=== PATIENT | male | born 1990 | race Caucasian/White ===

== ENCOUNTER 2016-04-18 14:09 | Inpatient (IN) | payer OTHER ==
[~2016-04-18] VITALS: Ht 172.7 cm; Wt 70.5 kg
[~2016-04-18 14:09] MED LIST: CYCLOBENZAPRINE10 MG PO; ROXICODONE15 MG PO
[2016-04-18 15:33] LABS: BASO # 0.1 10*3/uL (0.0-0.1); BASO % 0.7 % (0.0-1.0); EOS # 0.1 10*3/uL (0.0-0.4); EOS % 1.2 % (1.0-4.0); HEMATOCRIT 42.2 % (42.0-52.0); HEMOGLOBIN 14.4 g/dl (14.0-18.0); LYMPH # 2.5 10*3/uL (1.3-4.4); LYMPH % 30.1 % (27.0-41.0); MEAN CELL VOLUME 88.8 fl (80.0-94.0); MEAN CORPUSCULAR HGB 30.3 pg (27.0-31.0); MEAN CORPUSCULAR HGB CONC 34.1 g/dl (33.0-37.0); MEAN PLATELET VOLUME 9.9 fl (9.6-12.3); MONO # 0.8 10*3/uL (0.1-1.0); MONO % 9.8 % (3.0-9.0); NEUT # 4.8 10*3/uL (2.3-7.9); PLATELET COUNT AUTOMATED 213 10*3/uL (130-400); RED BLOOD COUNT 4.75 10*6/uL (4.50-5.90); RED CELL DISTRI WIDTH 12.8 % (0-14.5); WHITE BLOOD COUNT 8.3 10*3/uL (4.8-10.8)
[2016-04-18 15:41] LABS: PROTHROMBIN TIME 10.5 SECONDS (9.0-12.4)
[2016-04-18 15:52] LABS: ALBUMIN 3.6 gm/dl (3.1-4.5); ALKALINE PHOSPHATASE 52 U/L (45-117); BILIRUBIN, TOTAL 0.2 mg/dl (0.2-1.0); BUN 15 mg/dl (7-24); CARBON DIOXIDE 29 mmol/L (21-32); CHLORIDE 108 mmol/L (98-107); EST GLOM FILT AFRICAN AMERICAN > 60 ml/min; GLUCOSE 87 mg/dL (65-99); POTASSIUM 3.9 mmol/L (3.5-5.1); SGOT/AST 9 IU/L (3-35); SGPT/ALT 22 U/L (12-78); SODIUM 144 mmol/L (136-145); TOTAL PROTEIN 6.3 gm/dL (6.4-8.2)
[2016-04-18 15:57] LABS: BILIRUBIN NEGATIVE (NEGATIVE); BLOOD NEGATIVE (NEGATIVE); CLARITY SL CLOUDY (CLEAR); COLOR YELLOW (YELLOW); GLUCOSE NEGATIVE (NEGATIVE); KETONE NEGATIVE (NEGATIVE); LEUKO ESTERASE NEGATIVE (NEGATIVE); NITRITE NEGATIVE (NEGATIVE); PH 6.5 (5.0-9.0); PROTEIN NEGATIVE (NEGATIVE); SPECIFIC GRAVITY 1.025 (1.005-1.030); UROBILINOGEN 0.2 E.U./dl (0.2-1.0)
[2016-04-18 16:00] VITALS: BP 107/72
[2016-04-18 16:05] LABS: MUCOUS TRACE; URINE REFLEX COMMENT NO (NO); WBC 0-2 wbc/hpf (0-5)
[2016-04-18 16:06] LABS: URINE AMPHETAMINES < 1000 (1000ng/ml); URINE BARBITURATES < 200 (200ng/ml); URINE COCAINE > 300 (300ng/ml)
[2016-04-18 20:00] VITALS: BP 100/55
[2016-04-19] VITALS: BP 98/60
[2016-04-19 04:00] VITALS: BP 104/53
[2016-04-19 07:40] VITALS: BP 104/70
[2016-04-19 12:00] VITALS: BP 100/68
[2016-04-19 20:00] VITALS: BP 115/56
[2016-04-20] VITALS: BP 103/53
[2016-04-20 08:00] VITALS: BP 106/66
[2016-04-20 16:00] VITALS: BP 107/60
[2016-04-20 20:00] VITALS: BP 111/54
[2016-04-21] VITALS: BP 104/54
[2016-04-21 06:08] LABS: BASO % 0.3 % (0.0-1.0); EOS # 0.3 10*3/uL (0.0-0.4); EOS % 2.8 % (1.0-4.0); HEMATOCRIT 40.8 % (42.0-52.0); HEMOGLOBIN 13.4 g/dl (14.0-18.0); LYMPH # 2.2 10*3/uL (1.3-4.4); LYMPH % 23.1 % (27.0-41.0); MEAN CELL VOLUME 91.1 fl (80.0-94.0); MEAN CORPUSCULAR HGB 29.9 pg (27.0-31.0); MEAN CORPUSCULAR HGB CONC 32.8 g/dl (33.0-37.0); MEAN PLATELET VOLUME 10.1 fl (9.6-12.3); MONO # 1.1 10*3/uL (0.1-1.0); MONO % 12.3 % (3.0-9.0); NEUT # 5.7 10*3/uL (2.3-7.9); NEUT % 61.3 % (47.0-73.0); PLATELET COUNT AUTOMATED 210 10*3/uL (130-400); RED BLOOD COUNT 4.48 10*6/uL (4.50-5.90); RED CELL DISTRI WIDTH 13.1 % (0-14.5); WHITE BLOOD COUNT 9.3 10*3/uL (4.8-10.8)
[2016-04-21 06:29] LABS: EST GLOM FILT AFRICAN AMERICAN > 60 ml/min
[2016-04-21 08:00] VITALS: BP 116/60
[2016-04-21] MEDS ORDERED: ATARAX,VISTARIL50 MG PO (13:48)
[2016-04-21] MEDS ORDERED: CARBIDOPA/LEVOD1 TA1 PO (13:48)
[2016-04-21] MEDS ORDERED: ZOFRAN4 MG PO (13:48)
[2016-04-21] MEDS ORDERED: NATURE'S BLEND F1 MG PO (13:50)
[2016-04-21] MEDS ORDERED: VITAMIN B-11 TAB PO (13:50)
[2016-04-21] MEDS ORDERED: THERA TABS1 TAB PO (13:50)
== END 2016-04-21 14:07 | disposition home or self-care (01) | DRG 897 ==
LOC: 4E 14:09
PROVIDERS: Hospitalist; Internal Medicine
DX: F11.23 Opioid dependence with withdrawal (principal); F10.10 Alcohol abuse, uncomplicated; F14.10 Cocaine abuse, uncomplicated; Y90.9 Presence of alcohol in blood, level not specified; F17.210 Nicotine dependence, cigarettes, uncomplicated; N34.2 Other urethritis; F41.9 Anxiety disorder, unspecified; G89.29 Other chronic pain; M54.5 Low back pain; Z71.6 Tobacco abuse counseling; Z98.890 Other specified postprocedural states; Z82.49 Family history of ischemic heart disease and other diseases of the circulatory system

== ENCOUNTER 2016-12-14 11:28 | Inpatient (IN) | payer OTHER ==
[~2016-12-14] VITALS: Ht 170.1 cm; Wt 59.4 kg
[~2016-12-14 11:28] MED LIST changes: +ATARAX,VISTARIL50 MG PO; +CARBIDOPA/LEVOD1 TA1 PO; +NATURE'S BLEND F1 MG PO; +THERA TABS1 TAB PO; +VITAMIN B-11 TAB PO; +ZOFRAN4 MG PO
[2016-12-14 13:00] VITALS: BP 98/58
--- NOTE | 2016-12-14 13:00 | NUR ---
26 year old male admitted to room # 520 for stabilization. Reports an addiction to heroin last used 10 hours prior to admission; alcohol last used 12/13/16 Compliant with admission procedure. Patient state anxiety, but is able to sit still, taps toes to floor continuously, looks about room, able to focus eyes on nurse during interview. See assessment forms for additional information about patient status.
[2016-12-14 13:21] LABS: BASO # 0.1 10*3/uL (0.0-0.1); BASO % 0.6 % (0.0-1.0); EOS % 0.4 % (1.0-4.0); HEMATOCRIT 45.6 % (42.0-52.0); HEMOGLOBIN 15.6 g/dl (14.0-18.0); LYMPH # 1.9 10*3/uL (1.3-4.4); LYMPH % 20.6 % (27.0-41.0); MEAN CELL VOLUME 90.1 fl (80.0-94.0); MEAN CORPUSCULAR HGB 30.8 pg (27.0-31.0); MEAN CORPUSCULAR HGB CONC 34.2 g/dl (33.0-37.0); MEAN PLATELET VOLUME 10.2 fl (9.6-12.3); MONO # 0.7 10*3/uL (0.1-1.0); MONO % 8.1 % (3.0-9.0); NEUT # 6.3 10*3/uL (2.3-7.9); NEUT % 70.1 % (47.0-73.0); PLATELET COUNT AUTOMATED 228 10*3/uL (130-400); RED BLOOD COUNT 5.06 10*6/uL (4.50-5.90); RED CELL DISTRI WIDTH 13.2 % (0-14.5)
[2016-12-14 13:30] LABS: BILIRUBIN NEGATIVE (NEGATIVE); BLOOD NEGATIVE (NEGATIVE); CLARITY SL CLOUDY (CLEAR); COLOR YELLOW (YELLOW); GLUCOSE NEGATIVE (NEGATIVE); KETONE NEGATIVE (NEGATIVE); LEUKO ESTERASE NEGATIVE (NEGATIVE); NITRITE NEGATIVE (NEGATIVE); PH 5.5 (5.0-9.0); SPECIFIC GRAVITY 1.025 (1.005-1.030); UROBILINOGEN 0.2 E.U./dl (0.2-1.0)
[2016-12-14 13:39] LABS: ALBUMIN 4.3 gm/dl (3.1-4.5); BUN 12 mg/dl (7-24); CHLORIDE 104 mmol/L (98-107); CREATININE 0.88 mg/dL (0.70-1.30); SGOT/AST 11 IU/L (3-35); SGPT/ALT 18 U/L (12-78); SODIUM 142 mmol/L (136-145); TOTAL PROTEIN 7.3 gm/dL (6.4-8.2)
[2016-12-14 13:39] LABS: BACTERIA 1+; MUCOUS 3+
[2016-12-14 13:40] LABS: ALKALINE PHOSPHATASE 60 U/L (45-117); ETHYL ALCOHOL < 3.0 mg/dl (<3)
[2016-12-14 13:59] LABS: URINE AMPHETAMINES < 1000 (1000ng/ml); URINE BARBITURATES < 200 (200ng/ml); URINE BENZODIAZEPINES < 200 (200ng/ml); URINE CANNABINOIDS (THC) > 50 (50ng/ml); URINE COCAINE < 300 (300ng/ml); URINE METHADONE < 300 (300ng/ml); URINE OPIATES > 300 (300ng/ml)
[2016-12-14 14:02] LABS: URINE PHENCYCLIDINE < 25 (25ng/ml)
--- NOTE | 2016-12-14 14:33 | NUR ---
D/C PLANNING: PATIENT WANTS INPATIENT TREATMENT. PATIENT WAS REFERRED TO [facility]. PATIENT AGREES AND UNDERSTANDS AFTERCARE PLAN. INTAKE COORDIANTOR IS WORKING ON OBTAINING HIM PLACEMENT. CINA=17 CIWA=25 KASSIDY LAWSON B.A. COLD ROLL CATCHER
[2016-12-14 16:00] VITALS: BP 105/57
--- NOTE | 2016-12-14 16:40 | NUR ---
PT COMPLAIN OF NAUSEA, ZOFRAN GIVEN.
[2016-12-14 20:00] VITALS: BP 102/59
--- NOTE | 2016-12-14 21:26 | NUR ---
Patient reports the following symptoms of withdrawal: body aches, leg pain, nausea and cocaine cravings. Patient given scheduled/PRN medication to control withdrawal symptoms. Close observation will be maintained.
--- NOTE | 2016-12-14 23:00 | NUR ---
PATIENT IS AWAKE, ALERT AND ORIENTED. PLEASANT AND COOPERATIVE. LUNGS ARE CLEAR THROUGHOUT LUNGFIELDS. ROOM AIR. ABDOMEN IS SOFT AND NON-TENDER UPON PALPATION, BOWEL SOUNDS ARE NORMOACTIVE X 4 QUADS. NO EDEMA TO BLE, PPP. PATIETN VERBALIZED C/O INSOMNIA .. SECOND DOSE OF TRAZADONE GIVEN AT THIS TIME. CALL LIGHT IS IN REACH.
[2016-12-15] VITALS: BP 97/48
--- NOTE | 2016-12-15 05:40 | NUR ---
PATIENT AROUSES EASIILY FOR MORNING MEDICATIONS AT THIS TIME. ALERT AND ORIENTED. DENIES ANY NEEDS . CALL LIGHT IS IN REACH.
[2016-12-15 08:00] VITALS: BP 100/50
--- NOTE | 2016-12-15 10:05 | NUR ---
PT MEDICATED WITH ROBAXIN ORDERED FOR C/O BODY ACHES AND VISTARIL FOR ANXIETY.
--- NOTE | 2016-12-15 13:14 | NUR ---
PT C/O HEADACHE PAIN. PT MEDICATED WITH MOTRIN 600MG PO AND ALSO GIVEN NICOTINE GUM FOR POSSIBEL NICOTINE WITHDRAWAL.
[2016-12-15 16:00] VITALS: BP 98/51
--- NOTE | 2016-12-15 18:00 | NUR ---
PT MEDICATED WITH VISTARIL AND ROBAXIN FOR ANXIETY AND MUSCLE ACHE COMPLAINTS.
--- NOTE | 2016-12-15 20:14 | NUR ---
REQUIP AND TYLENOL GIVEN PER ORDER FOR RESTLESSNESS AND C/O BODY ACHES ALL OVER. MILDS HAND TREMORS NOTED. PT.SAYS HIS MIND JUST CAN'T STOP RACING.
--- NOTE | 2016-12-15 21:30 | NUR ---
TYLENOL AND REQUIP PER PT. HAVE HELPED WITH THE WITHDRAWL SYMPTOMS.
--- NOTE | 2016-12-15 21:52 | NUR ---
MEDICATED WITH PRN TRAZADONE PER ORDER.
--- NOTE | 2016-12-15 23:00 | NUR ---
PT. DROWZY TRAZADONE EFFECTIVE FOR INSOMNIA PT. DENIED NEEDING 2ND TRAZADONE.
[2016-12-16] VITALS: BP 104/48
--- NOTE | 2016-12-16 04:00 | NUR ---
SLEEPING. NO ACUTE DISTRESS NOTED.
--- NOTE | 2016-12-16 06:08 | NUR ---
C/O BACK PAIN AFTER AWAKEND. MOTRIN GIVEN PER ORDER FOR PAIN RATED "7".
--- NOTE | 2016-12-16 07:00 | NUR ---
MOTRIN NOT EFFECTIVE FOR BACK PAIN AT THIS TIME.
--- NOTE | 2016-12-16 07:39 | NUR ---
PT MEDICATED WITH TYLENOL FOR C/O HEADACHE PAIN, REQUIP AND ROBAXIN FOR LEG CRAMPS AND BODY ACHES AND VISTARIL FOR ANXIETY.
[2016-12-16 08:00] VITALS: BP 90/50
[2016-12-16 12:00] VITALS: BP 101/56
[2016-12-16] MEDS ORDERED: ZOFRAN 4 MG ED2 TAB PO (15:23)
[2016-12-16] MEDS ORDERED: TRAZODONE50 MG PO (15:23)
[2016-12-16] MEDS ORDERED: METHOCARBAMOL750 M1 PO (15:23)
[2016-12-16] MEDS ORDERED: ROPINIROLE HYD0.5 MG PO (15:23)
[2016-12-16] MEDS ORDERED: ATARAX,VISTARIL50 MG PO (15:23)
[2016-12-16 16:31] VITALS: BP 97/47
[2016-12-16 20:15] VITALS: BP 103/56
--- NOTE | 2016-12-16 21:20 | NUR ---
MEDICATED WITH TRAZDONE FOR INSOMNIA PER PT. REQUEST "JUST WANT TO SLEEP" ROBAXIN GIVEN FOR C/O MUSCLE CRAMPS.
--- NOTE | 2016-12-16 22:20 | NUR ---
PT. SLEEPING BUT AWAKEND WITH RESTLESSNESS OF LEGS. REQUIP GIVEN PER ORDER SEE MAR.
--- NOTE | 2016-12-17 00:15 | NUR ---
PT. SLEEPING WITHDRAWL MEDICATIONS EFFECTIVE FOR INSOMNIA AND MUSLE ACHES, RESTLESSNESS.
--- NOTE | 2016-12-17 03:27 | NUR ---
motrin and robaxin given per order for c/o muscle aches and back pain. see mar.
--- NOTE | 2016-12-17 06:00 | NUR ---
PT. AWAKEND FOR SUBUTEX AND LIBRIUM ADMINISTRATION AND PT. STATED MOTRIN AND ROBAXIN EFFECTIVE FOR BACK PAIN AND MUSCLE CRAMPS.
[2016-12-17 06:34] LABS: BASO % 0.5 % (0.0-1.0); EOS # 0.2 10*3/uL (0.0-0.4); EOS % 2.7 % (1.0-4.0); HEMATOCRIT 42.2 % (42.0-52.0); LYMPH # 2.2 10*3/uL (1.3-4.4); LYMPH % 30.1 % (27.0-41.0); MEAN CELL VOLUME 89.8 fl (80.0-94.0); MEAN CORPUSCULAR HGB 29.8 pg (27.0-31.0); MEAN CORPUSCULAR HGB CONC 33.2 g/dl (33.0-37.0); MEAN PLATELET VOLUME 10.3 fl (9.6-12.3); MONO # 0.8 10*3/uL (0.1-1.0); MONO % 10.7 % (3.0-9.0); NEUT # 4.1 10*3/uL (2.3-7.9); NEUT % 55.9 % (47.0-73.0); PLATELET COUNT AUTOMATED 185 10*3/uL (130-400); RED CELL DISTRI WIDTH 13.1 % (0-14.5); WHITE BLOOD COUNT 7.3 10*3/uL (4.8-10.8)
[2016-12-17 06:48] LABS: CREATININE 0.84 mg/dL (0.70-1.30)
[2016-12-17 08:00] VITALS: BP 90/40
--- NOTE | 2016-12-17 08:31 | NUR ---
Discharge instructions reviewed with patient/family. Patient receptive and verbalizes understanding. Follow-up care arranged. Written instructions given to patient/family. TIM LEYVA
--- NOTE | 2016-12-17 10:10 | NUR ---
PT MEDICATED WITH VISTARIL FOR ANXIETY. PT STATES HE IS LEAVING FROM HERE AND GOING RIGHT TO THE AIRPORT TO GO TO [place] FOR INPT REHAB THERE AND HE IS VERY ANXIOUS ABOUT IT.
--- NOTE | 2016-12-17 10:34 | NUR ---
PT DISCHARGED AT THIS TIME WITH [facility].
== END 2016-12-17 10:28 | DRG 897 ==
LOC: 5E 11:28
PROVIDERS: Student in an Organized Health Care Education/Training Program; ADMIT Internal Medicine
DX: F11.23 Opioid dependence with withdrawal (principal); F10.230 Alcohol dependence with withdrawal, uncomplicated; F14.10 Cocaine abuse, uncomplicated; Y90.9 Presence of alcohol in blood, level not specified; F17.210 Nicotine dependence, cigarettes, uncomplicated; G89.29 Other chronic pain; M54.5 Low back pain; Z82.49 Family history of ischemic heart disease and other diseases of the circulatory system; Z83.49 Family history of other endocrine, nutritional and metabolic diseases; Z71.6 Tobacco abuse counseling; Z79.899 Other long term (current) drug therapy

== ENCOUNTER 2018-10-31 14:08 | Inpatient (IN) | payer OTHER ==
[~2018-10-31] VITALS: Ht 175.2 cm; Wt 65.0 kg
--- NOTE | ~2018-10-31 | EKG ---
[place], [place] ELECTROCARDIOGRAM REPORT NAME: NORI VELAZQUEZ UNIT #: [id number] ROOM: 519 DOCTOR: SERVANDO DRAFT REPORT BIRTHDATE: [birth year] [facility] Test Date: 2018-10-31 Test Time: 16:49:59 Pat Name: NORI VELAZQUEZ Department: Room: [facility] 1 Gender: M [employer] Pay Clerk: : 1990 Requested By: JULIA SANCHEZ Order Number: [id number] Reading MD: Vince Velazquez MD Measurements Intervals [place] Rate: 47 P: 2 MT: 146 QRS: 67 QRSD: 82 T: 65 QT: 425 QTc: 376 Interpretive Statements Sinus bradycardia Electronically Signed On 11-02-2018 6:50:03 PDT by Vince Velazquez MD CM:[email or web address]:ELECTROCARDIOGRAM REPORT [id number] JULIA FLOWERS DRAFT REPORT JULIA SANCHEZ DO
[~2018-10-31 14:08] MED LIST changes: +METHOCARBAMOL750 M1 PO; +ROPINIROLE HYD0.5 MG PO; +TRAZODONE50 MG PO; +ZOFRAN 4 MG ED2 TAB PO
[2018-10-31 15:35] VITALS: BP 126/75
--- NOTE | 2018-10-31 15:35 | NUR ---
Time: 1534. A 28 year old MALE admitted to under services of DIANA MASON DO. [place]. [place]. Chief complaint: OPIATE ABUSE. JAJA KNOX
[2018-10-31 15:58] LABS: BASO # 0.1 10*3/uL (0.0-0.1); EOS # 0.1 10*3/uL (0.0-0.4); EOS % 0.9 % (1.0-4.0); HEMATOCRIT 44.7 % (42.0-52.0); HEMOGLOBIN 14.9 g/dl (14.0-18.0); LYMPH # 1.9 10*3/uL (1.3-4.4); LYMPH % 32.8 % (27.0-41.0); MEAN CELL VOLUME 89.2 fl (80.0-94.0); MEAN CORPUSCULAR HGB 29.7 pg (27.0-31.0); MEAN CORPUSCULAR HGB CONC 33.3 g/dl (33.0-37.0); MEAN PLATELET VOLUME 9.9 fl (9.6-12.3); MONO # 0.7 10*3/uL (0.1-1.0); MONO % 11.7 % (3.0-9.0); NEUT # 3.1 10*3/uL (2.3-7.9); NEUT % 53.4 % (47.0-73.0); PLATELET COUNT AUTOMATED 219 10*3/uL (130-400); RED BLOOD COUNT 5.01 10*6/uL (4.50-5.90); RED CELL DISTRI WIDTH 13.2 % (0-14.5); WHITE BLOOD COUNT 5.8 10*3/uL (4.8-10.8)
[2018-10-31 16:16] LABS: ALBUMIN 4.3 gm/dl (3.1-4.5); ALKALINE PHOSPHATASE 61 U/L (45-117); BUN 12 mg/dl (7-24); CHLORIDE 109 mmol/L (98-107); CREATININE 0.86 mg/dL (0.70-1.30); POTASSIUM 3.9 mmol/L (3.5-5.1); SGOT/AST 14 IU/L (3-35); SGPT/ALT 21 U/L (12-78); SODIUM 143 mmol/L (136-145); TOTAL PROTEIN 7.1 gm/dL (6.4-8.2)
[2018-10-31 16:17] LABS: INTERNATIONAL NORM RATIO 0.9 (2.0-3.5)
[2018-10-31 16:18] LABS: ETHYL ALCOHOL < 3.0 mg/dl (<3)
--- NOTE | 2018-10-31 16:18 | NUR ---
PATIENT MEETS [facility]. CINA=17. PATIENT IS UNDECIDED AT THIS TIME ON WHAT HE WANTS TO DO FOR AFTERCARE PLAN. PATIENT IS LOOKING AT OUTPATIENT TREATMENT. [facility] STAFF PROVED REFERRAL OPTION TO PATIENT. [facility] STAFF WILL FOLLOW BACK UP WITH PATIENT. KASSIDY LAWSON B.A. NOVELTY BALLOON ASSEMBLER AND PACKER
[2018-10-31 16:49] LABS: BILIRUBIN NEGATIVE (NEGATIVE); BLOOD NEGATIVE (NEGATIVE); CLARITY CLEAR (CLEAR); COLOR YELLOW (YELLOW); GLUCOSE NEGATIVE (NEGATIVE); KETONE NEGATIVE (NEGATIVE); LEUKO ESTERASE NEGATIVE (NEGATIVE); NITRITE NEGATIVE (NEGATIVE); SPECIFIC GRAVITY >= 1.030 (1.005-1.030); UROBILINOGEN 0.2 E.U./dl (0.2-1.0)
[2018-10-31 17:04] LABS: URINE AMPHETAMINES < 1000 (1000ng/ml); URINE BARBITURATES < 200 (200ng/ml); URINE BENZODIAZEPINES < 200 (200ng/ml); URINE CANNABINOIDS (THC) > 50 (50ng/ml); URINE COCAINE > 300 (300ng/ml); URINE METHADONE < 300 (300ng/ml); URINE OPIATES < 300 (300ng/ml)
[2018-10-31 17:05] LABS: URINE PHENCYCLIDINE < 25 (25ng/ml)
[2018-10-31 20:00] VITALS: BP 106/56
[2018-11-01] VITALS: BP 123/76
--- NOTE | 2018-11-01 06:53 | NUR ---
24 HR chart check completed.
[2018-11-01 08:00] VITALS: BP 111/71
--- NOTE | 2018-11-01 09:45 | NUR ---
PRN Bentyl given for c/o stomach cramps, Zofran given for c/o nausea Robaxin given for c/o muscle spasms, Motrin and Tylenol given for c/o achyness, Requip given for wrestless legs. Will monitor.
--- NOTE | 2018-11-01 10:40 | NUR ---
PRN medication effective. Patient asleep with respirations >12.
--- NOTE | 2018-11-01 15:22 | NUR ---
Contacted nursing special assemblies supervisor that patient chose to go AMA.
--- NOTE | 2018-11-01 15:25 | NUR ---
Contacted Dr. Alvarenga that patient chose to leave AMA.
--- NOTE | 2018-11-01 15:30 | NUR ---
Patient ambulated from unit with all personal belongings AMA.
== END 2018-11-01 15:30 | disposition left against medical advice (07) | DRG 894 ==
LOC: 5E 14:08
PROVIDERS: Family Medicine; ADMIT Internal Medicine
DX: F11.23 Opioid dependence with withdrawal (principal); F14.10 Cocaine abuse, uncomplicated; M54.5 Low back pain; Z53.21 Procedure and treatment not carried out due to patient leaving prior to being seen by health care provider; G89.29 Other chronic pain; F17.210 Nicotine dependence, cigarettes, uncomplicated; Z71.6 Tobacco abuse counseling; Z82.49 Family history of ischemic heart disease and other diseases of the circulatory system; Z83.49 Family history of other endocrine, nutritional and metabolic diseases